=== PATIENT | female | born 1995 | race African-American/Black ===

== ENCOUNTER 2020-07-09 08:09 | Emergency (ER) | payer OTHER ==
[~2020-07-09] VITALS: Ht 167.6 cm; Wt 54.4 kg
[~2020-07-09 08:09] MED LIST: IBUPROFEN 200200 M1 PO; NORCO 5-325 TA1 EACH PO; ZANAFLEX4 MG PO
[2020-07-09] MEDS ORDERED: PROZAC20 MG PO (08:19)
[2020-07-09] MEDS ORDERED: AMPHETAMINE SAL10 MG PO (08:19)
[2020-07-09] MEDS ORDERED: TRAZODONE HCL50 MG PO (08:20)
[2020-07-09] MEDS ORDERED: FLUOXETINE HCL40 MG PO (08:20)
[2020-07-09 09:52] VITALS: BP 104/69
== END 2020-07-09 09:52 | disposition home or self-care (01) ==
LOC: ER 08:09
DX: R05 Cough (principal); R09.89 Other specified symptoms and signs involving the circulatory and respiratory systems; F90.9 Attention-deficit hyperactivity disorder, unspecified type; F32.9 Major depressive disorder, single episode, unspecified; F41.9 Anxiety disorder, unspecified; J45.909 Unspecified asthma, uncomplicated; G43.909 Migraine, unspecified, not intractable, without status migrainosus; Z20.828 Contact with and (suspected) exposure to other viral communicable diseases; Z79.899 Other long term (current) drug therapy